=== PATIENT | male | born 1975 | race Caucasian/White ===

== ENCOUNTER → 2016-11-25 | Outpatient (CLI) | payer OTHER ==
--- NOTE | 2016-11-25 14:41 | Diagnostic Imaging Report ---
SALVATORE VEGAS [facility] [id number] [facility].[address] [id number] Report Submission Date: Nov 25, 2016 10:36:19 AM CDT Patient Study Name: EMMANUEL BARRIOS Date: Nov 25, 2016 10:01:00 AM CDT Modality Type: CR Gender: M Description: CHEST : 73 Institution: [facility] Physician: SALVATORE VEGAS Examination: PA and lateral chest. History: Evaluate lung watters Comparison exam: 09 November 2010 Findings: PA lateral chest demonstrate a normal cardiac and mediastinal silhouette. No focal infiltrate. No effusion. No blunting of the costophrenic margins. Osseous structures are appropriate for age. Impression: No acute process. Electronically signed on Nov 25, 2016 10:36:19 AM CDT by: Sanchez WHITTEN
== END ==
LOC: RAD 09:42
PROVIDERS: ATTEND Family Medicine
DX: R05 Cough (principal)
CPT/HCPCS: 71020